=== PATIENT | female | born 1975 | race American Indian/Alaskan Native ===

== ENCOUNTER 2017-11-28 16:31 | Emergency (ER) | payer OTHER ==
[2017-11-28 17:00] VITALS: BP 178/106
--- NOTE | 2017-11-28 21:02 | Emergency Department Report ---
Blank Doc - Documentation Documentation: Patient is a 42-year-old [place] female who had a syncopal episode yesterday. Patient states she had a third she felt in her chest and then felt woozy and passed out. Patient came to people around her family her and she states that she very rapidly started feeling better. Patient has a history of hypertension. Patient also has a rash this been present for quite some time and no one can give her answers to. Patient will tena urinalysis electrolytes cardiac enzymes and a CBC done to rule out emergent conditions that would've caused her syncope. Ve
[2017-11-28 21:37] LABS: Basophils % (Auto) 0.6 % (0.0-1.8); Eosinophils # (Auto) 0.1 K/mm3 (0.0-0.4); Eosinophils % (Auto) 1.4 % (0.0-4.3); Hematocrit 37.2 % (30.3-42.9); Hemoglobin 12.6 gm/dl (10.1-14.3); Lymphocytes # (Auto) 2.7 K/mm3 (1.2-5.4); Mean Corpuscular HGB Conc 34 % (30-34); Mean Corpuscular Hemoglobin 29 pg (28-32); Mean Corpuscular Volume 85 fl (79-97); Monocytes # (Auto) 0.6 K/mm3 (0.0-0.8); Monocytes % (Auto) 9.5 % (0.0-7.3); Platelet Count 244 K/mm3 (140-440); Red Blood Count 4.36 M/mm3 (3.65-5.03); Red Cell Distribution Width 13.3 % (13.2-15.2)
[2017-11-28 21:46] LABS: Alanine Aminotransferase 10 units/L (7-56); BUN/Creatinine Ratio 13; Blood Urea Nitrogen 9 mg/dL (7-17); Calcium 8.6 mg/dL (8.4-10.2); Hemolysis Index 5
--- NOTE | 2017-11-28 23:28 | Emergency Department Report ---
ED Syncope HPI - General Chief Complaint: Syncope Stated Complaint: EKG EVALUATION Time Seen by Provider: 11/28/17 20:37 Source: patient - History of Present Illness Initial Comments: Patient is a 42-year-old Spanish female who had a syncopal episode yesterday. Patient states she had a third she felt in her chest and then felt woozy and passed out. Patient came to people around her family her and she states that she very rapidly started feeling better. Patient has a history of hypertension. Timing/Prior Episodes: no prior history Precipitating Factors: Positive: lightheadedness, rapid heart beat. Negative: blurred vision, confusion, injury, nausea, pain - Related Data Allergies/Adverse Reactions: Allergies No Known Allergies Allergy (Unverified 11/28/17 16:58) ED Review of Systems ROS: Stated complaint: EKG EVALUATION Other details as noted in HPI Constitutional: denies: chills, fever Eyes: denies: eye pain, eye discharge, vision change ENT: denies: ear pain, throat pain Respiratory: denies: cough, shortness of breath, SOB with exertion, wheezing Cardiovascular: palpitations, syncope (yesterday). denies: chest pain Endocrine: no symptoms reported Gastrointestinal: denies: abdominal pain, nausea, diarrhea Genitourinary: denies: urgency, dysuria, discharge Musculoskeletal: denies: back pain, joint swelling, arthralgia Skin: denies: rash, lesions Neurological: denies: headache, weakness, paresthesias Psychiatric: denies: anxiety, depression Hematological/Lymphatic: denies: easy bleeding, easy bruising ED Past Medical Hx - Past Medical History Hx Hypertension: Yes ED Physical Exam - General Limitations: No Limitations General appearance: alert, in no apparent distress - Head Head exam: Present: atraumatic, normocephalic - Eye Eye exam: Present: normal appearance - ENT ENT exam: Present: mucous membranes moist - Neck Neck exam: Present: normal inspection - Respiratory Respiratory exam: Present: normal lung sounds bilaterally. Absent: respiratory distress - Cardiovascular Cardiovascular Exam: Present: regular rate, normal rhythm. Absent: systolic murmur, diastolic murmur, rubs, gallop - GI/Abdominal GI/Abdominal exam: Present: soft, normal bowel sounds - Extremities Exam Extremities exam: Present: normal inspection. Absent: pedal edema - Back Exam Back exam: Present: normal inspection - Neurological Exam Neurological exam: Present: alert, oriented X3 - Psychiatric Psychiatric exam: Present: normal affect, normal mood - Skin Skin exam: Present: warm, dry, intact, normal color. Absent: rash ED Course Vital Signs 11/28/17 16:58 Temperature 98.1 F Pulse Rate 75 Respiratory 18 Rate Blood Pressure 178/106 O2 Sat by Pulse 100 Oximetry ED Medical Decision Making - Lab Data Result diagrams: 11/28/17 21:14 11/28/17 21:14 - Medical Decision Making Patient has been evaluated by this provider as well as Dr. Potts. Lab work appears to be within normal limits. 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 Critical care attestation.: If time is entered above; I have spent that time in minutes in the direct care of this critically ill patient, excluding procedure time. ED Disposition Clinical Impression: Syncopal episodes Qualifiers: Syncope type: unspecified Qualified Code(s): R55 - Syncope and collapse Disposition: DC-01 TO HOME OR SELFCARE Is pt being admited?: No Does the pt Need Aspirin: No Condition: Stable Instructions: Syncope (ED) Additional Instructions: Please follow up with the crating and moving estimator I have listed one below. Please also follow up with her primary care provider. Please continue taking her hypertensive medicine. Referrals: RAFA WHITLEY MD [Primary Care Provider] - 3-5 Days SELVIN CURRY MD [Staff Physician] - 3-5 Days SHIRA SMITH MD [Staff Physician] - 3-5 Days Forms: Work/School Release Form(ED)
== END 2017-11-28 23:30 | disposition home or self-care (01) ==
LOC: ED 16:31
DX: R55 Syncope and collapse (principal); I10 Essential (primary) hypertension
CPT/HCPCS: 36415; 80053; 85025; 93005; 93010; 99283

== ENCOUNTER 2019-03-05 10:15 | Emergency (ER) | payer OTHER ==
[2019-03-05 10:34] VITALS: BP 138/85
--- NOTE | 2019-03-05 11:54 | Emergency Department Report ---
Upper Extremity - HPI Chief Complaint: Shoulder Injury Stated Complaint: RT SHOULDER PAIN Time Seen by Provider: 03/05/19 11:49 Upper Extremity: Right Shoulder Occurred When: >5 Days (3 months) Mechanism: Hyperextension Severity: moderate Symptoms: Yes Pain with Movement (intermittently), Yes Limited Range of Movement (intermittently), No Deformity, No Numbness, No Weakness, No Swelling, No Bruising/Ecchymosis, No Laceration or Abrasion Other History: 44-year-old -Swiss female presents to the emergency tiffany complaining of right shoulder pain is intermittent for 3 months. Patient denies any acute injuries. 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 Patient does not recall any injuries. Patient reports that she takes Aleve which maybe once a week it does help with her pain. Patient does have a history of hypertension currently on amlodipine and hydrochlorothiazide 25 mg daily she also takes supplements of CLA and Zantrex blue. ED Review of Systems ROS: Stated complaint: RT SHOULDER PAIN Other details as noted in HPI Comment: All other systems reviewed and negative ED Past Medical Hx - Past Medical History Previous Medical History?: Yes Hx Hypertension: Yes - Surgical History Past Surgical History?: No - Social History Smoking Status: Never Smoker Substance Use Type: Alcohol - Medications Home Medications: Home Medications Medication Instructions Recorded Confirmed Last Taken Type Meloxicam [Mobic] 7.5 mg PO QDAY #30 tablet 03/05/19 Unknown Rx Upper Extremity Exam - Exam General: Vital signs noted. No distress. Alert and acting appropriately. Head and Torso: No HEENT Abnormality, No Neck Tenderness, No Chest/Lungs Abnormality, No Abdominal Tenderness, No Back Tenderness Shoulder Exam: Yes Normal Range of Motion in Shoulder, No Shoulder Tenderness, No Clavicle Tenderness, No Shoulder Deformity, No AC Joint Tenderness Arm Exam: No Arm/Humerus Tenderness, No Arm Deformity Elbow: No Elbow Tenderness, No Normal Range of Motion in Elbow, No Elbow Deformity Forearm: No Forearm Tenderness, No Forearm Deformity, No Pain with Pronation, No Pain with Supination Wrist: Yes Normal ROM in Wrist, No Wrist Tenderness, No Wrist Deformity, No Snuffbox Tenderness, No Pain with Axial Thumb Compression Hand: Yes Normal ROM in Digit(s), No Hand Tenderness, No Hand Deformity, No Digit Tenderness, No Digit(s) Deformity, No Tendon Dysfunction CMS Exam: No Broken Skin, No Normal Distal Pulses, No Normal Capillary Refill, No Normal Distal Sensation ED Course Vital Signs 03/05/19 10:33 Temperature 98.0 F Pulse Rate 85 Respiratory 16 Rate Blood Pressure 138/85 O2 Sat by Pulse 99 Oximetry ED Medical Decision Making - Medical Decision Making 44-year-old female evaluated by this provider [facility] for right shoulder pain that's been chronic for 3 months. Discussed the patient is most likely due to her job and working out that she lifts heavy objects. I discussed the patient we will try her on meloxicam 7.5 mg daily and to refer her to her orthopedic provider. Patient verbalized understanding. Critical care attestation.: If time is entered above; I have spent that time in minutes in the direct care of this critically ill patient, excluding procedure time. ED Disposition Clinical Impression: Shoulder pain, right Qualifiers: Chronicity: unspecified Qualified Code(s): M25.511 - Pain in right shoulder Disposition: - TO HOME OR SELFCARE Is pt being admited?: No Does the pt Need Aspirin: No Condition: Stable Instructions: Arthralgia (ED), Rotator Cuff Tendinitis (ED) Additional Instructions: Take pain medication as prescribed. Follow-up with orthopedic provider I have listed several below for your convenience. Prescriptions: Meloxicam [Mobic] 7.5 mg PO QDAY #30 tablet Referrals: WARREN QUINTANA MD [Primary Care Provider] - 3-5 Days BLU SMITH MD [Staff Physician] - 3-5 Days LEIDY GARCIA MD [Staff Physician] - 3-5 Days [facility] [Provider Group] - 3-5 Days
== END 2019-03-05 12:12 | disposition home or self-care (01) ==
LOC: ED 10:15
DX: M25.511 Pain in right shoulder (principal); I10 Essential (primary) hypertension; Z79.899 Other long term (current) drug therapy; X50.0XXA Overexertion from strenuous movement or load, initial encounter; Y93.89 Activity, other specified; Y92.89 Other specified places as the place of occurrence of the external cause; Y99.0 Civilian activity done for income or pay
CPT/HCPCS: 99282

== ENCOUNTER 2019-09-24 20:38 | Emergency (ER) | payer OTHER ==
[2019-09-24 20:55] VITALS: BP 120/78
--- NOTE | 2019-09-24 21:17 | Emergency Department Report ---
Blank Doc - Documentation Documentation: 44-year-old female that presents with urinary symptoms. This initial assessment/diagnostic orders/clinical plan/treatment(s) is/are subject to change based on patient's health status, clinical progression and re- assessment by fellow clinical providers in the ED. Further treatment and workup at subsequent clinical providers discretion. Patient/guardians urged not to elope from the ED as their condition may be serious if not clinically assessed and managed. Initial orders include: 1- Patient sent to [facility] for further evaluation and treatment 2- UA
[2019-09-24 22:42] LABS: HCG Qualitative,Urine Negative (Negative)
[2019-09-24 22:43] LABS: Bacteria,Urine 1+ /HPF (Negative); Bilirubin,Urine NEG (Negative); Blood,Urine LG (Negative); Color,Urine Straw (Yellow); Protein,Urine <15 mg/dL mg/dL (Negative); Urobilinogen,Urine < 2.0 mg/dL (<2.0)
--- NOTE | 2019-09-24 23:04 | Emergency Department Report ---
ED Female HPI - General Chief complaint: Urogenital-Female Stated complaint: CHILLS,FEELING LIKE SHE HAS TO URINATE Time Seen by Provider: 09/24/19 21:15 Source: patient Mode of arrival: Ambulatory Limitations: No Limitations - History of Present Illness Initial comments: 44-year-old -Eth[place] female presents to the emergency room for chills d ifficulty urine needing urinary frequency urinary urgency. Patient states his been going on since started today. Patient denies any abdominal pain diarrhea chest pains fever nausea or vomiting. MD Complaint: dysuria -: This morning Severity scale (0 -10): 0 Are you Now?: No - Related Data Previous Rx's Medication Instructions Recorded Last Taken Type Meloxicam [Mobic] 7.5 mg PO QDAY #30 tablet 03/05/19 Unknown Rx Nitrofurantoin [place]/M-Cryst 100 mg PO Q12HR 10 Days #20 capsule 09/24/19 Unknown Rx [Macrobid CAP] Phenazopyridine [Pyridium] 100 mg PO TID #6 tab 09/24/19 Unknown Rx Allergies Allergy/AdvReac Type Severity Reaction Status Date / Time No Known Allergies Allergy Unverified 11/28/17 16:58 ED Review of Systems ROS: Stated complaint: CHILLS,FEELING LIKE SHE HAS TO URINATE Other details as noted in HPI Comment: All other systems reviewed and negative ED Past Medical Hx - Past Medical History Hx Hypertension: Yes - Social History Smoking Status: Never Smoker Substance Use Type: None - Medications Home Medications: Home Medications Medication Instructions Recorded Confirmed Last Taken Type Meloxicam [Mobic] 7.5 mg PO QDAY #30 tablet 03/05/19 Unknown Rx Nitrofurantoin [place]/M-Cryst 100 mg PO Q12HR 10 Days #20 capsule 09/24/19 Unknown Rx [Macrobid CAP] Phenazopyridine [Pyridium] 100 mg PO TID #6 tab 09/24/19 Unknown Rx ED Physical Exam - General Limitations: No Limitations General appearance: alert, in no apparent distress - Head Head exam: Present: atraumatic, normocephalic - Eye Eye exam: Present: normal appearance - ENT ENT exam: Present: mucous membranes moist - Neck Neck exam: Present: normal inspection, full ROM - GI/Abdominal GI/Abdominal exam: Present: soft. Absent: distended, tenderness, guarding, rebound - Back Exam Back exam: Present: normal inspection - Neurological Exam Neurological exam: Present: alert, oriented X3 - Psychiatric Psychiatric exam: Present: normal affect, normal mood - Skin Skin exam: Present: warm, dry, intact, normal color. Absent: rash ED Course Vital Signs 09/24/19 20:48 Temperature 97.5 F L Pulse Rate 72 Respiratory 18 Rate Blood Pressure 120/78 O2 Sat by Pulse 99 Oximetry ED Medical Decision Making - Medical Decision Making 44-year-old -Eth[place] female presents to the emergency room for chills difficulty urine needing urinary frequency urinary urgency. Patient states his been going on since started today. Patient denies any abdominal pain diarrhea chest pains fever nausea or vomiting. Appears to have a urinary tract infection. We'll place patient on Macrobid 100 mg by mouth twice a day and Pyridium 100 mg 3 times a day for 2 days. Patient encouraged to increase her fluid intake. Discussed the patient to void after intercourse. Patient verbalized understanding Critical care attestation.: If time is entered above; I have spent that time in minutes in the direct care of this critically ill patient, excluding procedure time. ED Disposition Clinical Impression: UTI (urinary tract infection) Disposition: DC-01 TO HOME OR SELFCARE Is pt being admited?: No Does the pt Need Aspirin: No Condition: Stable Instructions: Urinary Tract Infection in Women (ED) Additional Instructions: Increase her fluid intake. After intercourse. Prescriptions: Nitrofurantoin [place]/M-Cryst [Macrobid CAP] 100 mg PO Q12HR 10 Days #20 capsule Phenazopyridine [Pyridium] 100 mg PO TID #6 tab Referrals: PRIMARY CARE, [Primary Care Provider] - 3-5 Days
== END 2019-09-24 23:12 | disposition home or self-care (01) ==
LOC: ED 20:38
DX: N39.0 Urinary tract infection, site not specified (principal); I10 Essential (primary) hypertension; Z79.899 Other long term (current) drug therapy
CPT/HCPCS: 81001; 81025; 87076; 87086; 87186

== ENCOUNTER 2022-04-07 19:59 | Emergency (ER) | payer OTHER ==
[2022-04-07 20:23] VITALS: BP 139/80
== END 2022-04-07 22:53 | disposition left against medical advice (07) ==
LOC: ED 19:59
DX: M25.559 Pain in unspecified hip (principal); R51.9 Headache, unspecified; Z53.21 Procedure and treatment not carried out due to patient leaving prior to being seen by health care provider